=== PATIENT | male | born 1960 | race Caucasian/White ===

== ENCOUNTER 2018-04-25 18:07 | Emergency (ER) | payer BC ==
[2018-04-25] MEDS ORDERED: NS 1,000 ML IV ONE (18:31)
[2018-04-25] MEDS ORDERED: KETOROLAC 30 MG/1 ML SDV IVP ONE (18:31)
--- NOTE | 2018-04-25 18:32 | EDPHY ---
H & P Stated Complaint: Right flank pain Time Seen by Provider: 04/25/18 18:26 HPI/ROS: CHIEF COMPLAINT: Right flank pain HISTORY OF PRESENT ILLNESS: Patient is a 58-year-old man visiting from [place]. He has a history of kidney stones and passed 1 on the left side 2 months ago. He had a follow-up appoint with Urology 2 weeks ago and at that time had a CT scan that revealed a stone on his right side as well, in the renal pelvis. Few hours ago he began having pain on the right side radiating to his groin. He states that it is exactly similar to the kidney stone he had few months ago although that was on the other side. Patient reports that the CT scan did not show any other vascular or intestinal abnormalities. He states he tried taking ibuprofen at home but threw it up. No fever. No hematuria. He states that his pain is currently very minimal. Severity: Severe Modifying factors: Improved spontaneously. REVIEW OF SYSTEMS: Constitutional: denies: chills, fever, recent illness, recent injury EENTM: denies: blurred vision, double vision, nose congestion Respiratory: denies: cough, shortness of breath Cardiac: denies: chest pain, irregular heart rate, lightheadedness, palpitations Gastrointestinal/Abdominal: denies: abdominal pain, diarrhea, nausea, vomiting, blood streaked stools Genitourinary: See HPI Musculoskeletal: denies: joint pain, muscle pain Skin: denies: lesions, rash, jaundice, bruising Neurological: denies: headache, numbness, paresthesia, tingling, dizziness, weakness Hematologic/Lymphatic: denies: blood clots, easy bleeding, easy bruising Immunologic/allergic: denies: HIV/AIDS, transplant 10 systems reviewed and negative except as noted EXAM: GENERAL: Well-appearing, obese and in no acute distress. HEAD: Atraumatic, normocephalic. EYES: Pupils equal round and reactive to light, extraocular movements intact, sclera anicteric, conjunctiva are normal. ENT: TMs normal, nares patent, oropharynx clear without exudates. Moist mucous membranes. NECK: Normal range of motion, supple without lymphadenopathy or JVD. LUNGS: Breath sounds clear to auscultation bilaterally and equal. No wheezes rales or rhonchi. HEART: Regular rate and rhythm without murmurs, rubs or gallops. ABDOMEN: Soft, nontender, normoactive bowel sounds. No guarding, no rebound. No masses appreciated. BACK: Right flank pain, No CVA tenderness, no spinal tenderness, step-offs or deformities EXTREMITIES: Normal range of motion, no pitting or edema. No clubbing or cyanosis. NEUROLOGICAL: Cranial nerves II through XII grossly intact. Normal speech, normal gait. 5/5 strength, normal movement in all extremities, normal sensation , normal reflexes PSYCH: Normal mood, normal affect. SKIN: Warm, dry, normal turgor, no visible rashes or lesions. Source: Patient Exam Limitations: No limitations - Personal History Current Tetanus/Diphtheria Vaccine: Yes - Medical/Surgical History Hx Asthma: No Hx Chronic Respiratory Disease: No Hx Diabetes: No Hx Cardiac Disease: Yes Hx Renal Disease: No Hx Cirrhosis: No Hx Alcoholism: No Other PMH: Kidney stones, HTN, - Family History Significant Family History: No pertinent family hx - Social History Smoking Status: Never smoked Alcohol Use: None Constitutional: Initial Vital Signs Temperature (C) 36.5 C 04/25/18 18:17 Heart Rate 91 04/25/18 18:17 Respiratory Rate 18 04/25/18 18:17 Blood Pressure 118/78 04/25/18 18:17 O2 Sat (%) 95 04/25/18 18:17 O2 Delivery Mode Room Air Allergies/Adverse Reactions: No Known Allergies Allergy (Unverified 04/25/18 18:21) Home Medications: Medication Instructions Recorded Amlodipine Besylate 04/25/18 Aspirin 81mg (*) 04/25/18 Atorvastatin Calcium 04/25/18 Carvedilol 04/25/18 FENOFIBRATE 04/25/18 Hydrochlorothiazide 04/25/18 Hydrocodone/APAP 5/325 [[place] 1 - 2 tab PO Q4H PRN #10 tab 04/25/18 5/325] Lisinopril 04/25/18 Ondansetron Odt [Zofran Odt 4 mg 4 mg PO Q4 PRN #20 tab 04/25/18 (RX)] Prilosec 04/25/18 Medical Decision Making ED Course/Re-evaluation: Will check the patient's kidney function and urinalysis. We will hydrate and treat with pain medication in the nausea medication. I do not think that repeat imaging is indicated the patient agrees. He had a CT 2 weeks ago and states that he had a stone on the right side that was medium in size and he was told that it would pass on its own. 8:10 p.m. the patient is feeling completely better. He has been hydrated. We will avoid further and said and Toradol used because of his slightly elevated creatinine. I will prescribe him Vicodin as well as Zofran to use as needed. He is already taking Flomax. We discussed indications for returning. Differential Diagnosis: Partial list of the Differential diagnosis considered include but were not limited to; kidney stone and although unlikely based on the history and physical exam, I also considered urinary tract infection, ischemia, dissection, appendicitis, aneurysm. I discussed these differential diagnoses and the plan with the patient as well as the usual and expected course. The patient understands that the diagnosis is provisional and that in medicine we are not always correct and that further workup is often warranted. Usual and customary warnings were given. All of the patient's questions were answered. The patient was instructed to return to the emergency department should the symptoms at all worsen or return, otherwise to followup with the physician as we discussed. - Data Points Laboratory Results: Laboratory Results 04/25/18 18:45 04/25/18 18:45 Medications Given: Discontinued Medications Hydrocodone Bitart/Acetaminophen ([place] 5/325mg Prepack#6) 1 btl TAKEHOME EDNOW ONE Stop: 04/25/18 20:15 Last Admin: 04/25/18 20:38 Dose: 1 btl Sodium Chloride (Ns) 1,000 mls @ 0 mls/hr IV EDNOW ONE; Wide Open PRN Reason: Protocol Stop: 04/25/18 18:32 Last Admin: 04/25/18 18:54 Dose: 1,000 mls Ketorolac Tromethamine (Toradol) 30 mg IVP EDNOW ONE Stop: 04/25/18 18:32 Last Admin: 04/25/18 18:55 Dose: 30 mg Ondansetron HCl (Zofran) 4 mg IVP EDNOW ONE Stop: 04/25/18 18:37 Last Admin: 04/25/18 18:55 Dose: 4 mg Ondansetron HCl (Zofran Odt 4 Mg Prepack#2) 1 btl TAKEHOME EDNOW ONE Stop: 04/25/18 20:15 Last Admin: 04/25/18 20:38 Dose: 1 btl Departure - Departure Disposition: Home, Routine, Self-Care Clinical Impression: Kidney stone on right side Condition: Fair Instructions: Hydrocodone/Acetaminophen (By mouth), Ondansetron (By mouth), Kidney Stones (ED) Referrals: NONE *PRIMARY CARE P,. [Primary Care Provider] - As per Instructions Ned Chiang MD [Medical Doctor] - 3-4 days, if not improved Prescriptions: Hydrocodone/APAP 5/325 [[place] 5/325] 1 - 2 tab PO Q4H PRN #10 tab PRN Reason: Pain, Moderate Ondansetron Odt [Zofran Odt 4 mg (RX)] 4 mg PO Q4 PRN #20 tab PRN Reason: Nausea & Vomiting
[2018-04-25] MEDS ORDERED: ONDANSETRON 4 MG/2 ML VIAL IVP ONE (18:36)
[2018-04-25 18:54] LABS: PLATELET COUNT 176 10^3/uL (150-400)
[2018-04-25] MEDS ORDERED: HYDROCOD/APAP 5/325 PREPACK#6 BTL TAKEHOME ONE (20:14)
[2018-04-25] MEDS ORDERED: ONDANSETRON 4MG PREPACK#2 BTL TAKEHOME ONE (20:14)
[2018-04-25 20:47] VITALS: BP 132/83
== END 2018-04-25 20:46 | disposition home or self-care (01) ==
DX: N20.0 Calculus of kidney (principal); I10 Essential (primary) hypertension; Z87.442 Personal history of urinary calculi; E86.9 Volume depletion, unspecified
CPT/HCPCS: 96374; J1885; J2405